=== PATIENT | female | born 1955 | race Caucasian/White ===

== ENCOUNTER 2022-08-30 11:05 | Outpatient (OUT) | payer MEDICARE, OTHER, SELFPAY ==
--- NOTE | 2022-08-30 11:18 | XR_ITS ---
The [address] [address] Patient Name: JOSE SNIDER MRN: [id number] date: 1955 Sex: F Assigned Patient Location: [facility] Current Patient Location: [facility] Accession/Order Number: [id number] Exam Date: 08/30/2022 11:25 Report Date: 08/30/2022 12:01 At the request of: NON-STAFF PHYSICIAN Procedure: XR abdomen 1V EXAMINATION: XR abdomen 1V HISTORY: Kidney Stone N20.0 COMPARISON: 06/10/2021 FINDINGS: KIDNEY/URETER - RIGHT: Punctate nephrolithiasis KIDNEY/URETER - LEFT: Punctate nephrolithiasis PELVIS: No visible ureteral calcifications. Any visible calcifications favor phleboliths. BOWEL: No abnormal dilation or deviation. BONES: No acute abnormality. Moderate to severe diffuse degenerative changes OTHER: Negative. No abnormal gaseous collections. XR/XR abdomen 1V IMPRESSION: Bilateral nephrolithiasis Electronically authenticated by: MATTIE RODRÍGUEZ Date: 08/30/2022 12:01
== END 2022-08-30 11:06 | disposition home or self-care (01) ==
LOC: RAD 11:10
DX: N20.0 Calculus of kidney (principal)
CPT/HCPCS: 74018